=== PATIENT | male | born 1980 | race Caucasian/White ===

== ENCOUNTER 2021-03-06 21:22 | Emergency (ER) | payer MEDICAID ==
[~2021-03-06] VITALS: Ht 180.3 cm; Wt 113.4 kg
[2021-03-06 21:27] VITALS: BP 140/80
--- NOTE | 2021-03-06 21:38 | NUR ---
PT PRESENTS TO THE ED WITH C/O BACK PAIN 12/02. PT DENIES ANY TRAUMA. PT DENIES ANY NUMBNESS OR TINGLING. PT DENIES OTHER MEDICAL HX. PT REPORTS METH USE YESTERDAY.
[2021-03-07 01:47] VITALS: BP 140/80
--- NOTE | 2021-03-07 01:47 | NUR ---
Patient discharged with v/s stable. Written and verbal after care instructions given and explained. Patient verbalized understanding. Ambulatory with steady gait. All questions addressed prior to discharge. Advised to follow up with PMD.
== END 2021-03-07 01:36 | disposition home or self-care (01) ==
LOC: MED 21:22
DX: M79.604 Pain in right leg (principal); F17.210 Nicotine dependence, cigarettes, uncomplicated; F12.90 Cannabis use, unspecified, uncomplicated; F15.90 Other stimulant use, unspecified, uncomplicated
CPT/HCPCS: 73590; 99284